=== PATIENT | female | born 1965 | race Two or more races ===

== ENCOUNTER 2017-02-01 19:31 | Emergency (ER) | payer MEDICARE, OTHER ==
[~2017-02-01] VITALS: Ht 172.7 cm; Wt 129.7 kg
[2017-02-01 19:39] VITALS: BP 141/64
[2017-02-01] MEDS ORDERED: ONDANSETRON 4 MG TAB.RAPDIS SL ONE (20:00)
[2017-02-01] MEDS ORDERED: HYDROCODONE/APAP 10/325MG 1 EA TABLET PO ONE (20:00)
[2017-02-01] MEDS ORDERED: ONDANSETRON 4 MG TAB.RAPDIS ONE (20:05)
[2017-02-01] MEDS ORDERED: HYDROCODONE/APAP 10/325MG 1 EA TABLET ONE (20:06)
== END 2017-02-01 21:27 | disposition home or self-care (01) ==
LOC: ER 19:31
DX: M79.661 Pain in right lower leg (principal); E11.9 Type 2 diabetes mellitus without complications; Z85.3 Personal history of malignant neoplasm of breast; Z90.13 Acquired absence of bilateral breasts and nipples; Z90.89 Acquired absence of other organs; Z90.49 Acquired absence of other specified parts of digestive tract
CPT/HCPCS: 73590; 93970; 99284; A4606; Q0162; Z7610

== ENCOUNTER 2017-04-05 20:14 | Emergency (ER) | payer MEDICARE, OTHER ==
[~2017-04-05] VITALS: Ht 170.2 cm; Wt 131.5 kg
--- NOTE | 2017-04-05 20:21 | NUR ---
PT BIB BY SON. "PAIN LT BREAST WHERE THE MASTECTOMY WAS DONE SINCE YESTERDAY". PLACED ON MONITOR. GOWNED PT. VSS. AWAITING MD ORDER
--- NOTE | 2017-04-05 20:38 | NUR ---
DR KHAN AT BEDSIDE FOR EVAL
--- NOTE | 2017-04-05 20:45 | NUR ---
EKG IN PROGRESS
--- NOTE | 2017-04-05 20:48 | NUR ---
MACHINE SETTER AUTOMATIC AT BEDSIDE
--- NOTE | 2017-04-05 20:48 | NUR ---
RFA #20 IV ACCESS. BLOOD SAMPLE COLLECTED SENT TO LAB
[2017-04-05] MEDS ORDERED: IOHEXOL-350 100 ML VIAL IV ONE (20:53)
[2017-04-05] MEDS ORDERED: IV NS 0.9% 250 ML IV ONE (20:53)
[2017-04-05 20:54] LABS: BASOPHILS # (AUTO) 0.1 /CMM (0.0-0.2); BASOPHILS % (AUTO) 0.7 % (0.0-2.0); EOSINOPHILS # (AUTO) 0.2 /CMM (0.0-0.7); EOSINOPHILS % (AUTO) 2.1 % (0.0-6.0); HEMATOCRIT 45 % (33-45); HEMOGLOBIN 14.4 g/dL (11.5-14.8); LYMPHOCYTES # (AUTO) 2.4 /CMM (0.8-4.8); MEAN CORPUSCULAR HEMOGLOBIN 28 PG (26.0-33.0); MEAN CORPUSCULAR HGB CONC 33 g/dl (31.0-36.0); MEAN CORPUSCULAR VOLUME 86 fL (82-100); MONOCYTES # (AUTO) 0.4 /CMM (0.1-1.30); NEUTROPHILS # (AUTO) 4.3 /CMM (1.8-8.9); NEUTROPHILS % (AUTO) 59.2 % (43.0-81.0); PLATELET COUNT (AUTO) 186 /CMM (150-450); RDW COEFFICIENT OF VARIATION 12.4 (11.5-15.0); RED BLOOD CELL COUNT(AUTO) 5.21 MIL/uL (4.0-5.2); WHITE BLOOD COUNT (AUTO) 7.4 K/uL (4.3-11.0)
[2017-04-05 20:59] LABS: CALCIUM, SERUM 9.5 mg/dL (8.5-10.1); CARBON DIOXIDE 26 mmol/L (21-32); CHLORIDE 105 mmol/L (98-107); CREATININE 0.9 mg/dL (0.6-1.3); GLUCOSE 138 mg/dL (74-106); SODIUM SERUM 139 mmol/L (136-145); UREA NITROGEN, BLOOD 19 mg/dL (7-18)
--- NOTE | 2017-04-05 21:00 | NUR ---
PT TAKEN TO CT VIA [facility]
[2017-04-05 21:02] LABS: INR 1.05 (0.87-1.13); PROTHROMBIN TIME 10.9 SECS (9.5-12.7)
[2017-04-05 21:08] LABS: TROPONIN I < 0.017 ng/mL (0.00-0.056)
--- NOTE | 2017-04-05 21:48 | NUR ---
IV removed. Catheter intact and site benign. Pressure and 4x4 applied to site. No bleeding noted.
--- NOTE | 2017-04-05 21:48 | NUR ---
Patient discharged to home in stable condition. Written and verbal after care instructions given. Patient verbalizes understanding of instruction.
[2017-04-05 22:00] VITALS: BP 125/85
[2017-04-05] MEDS ORDERED: HYDROCODONE/APAP 10/325MG 1 EA TABLET PO ONE (22:00)
[2017-04-05] MEDS ORDERED: ONDANSETRON 4 MG TAB.RAPDIS SL ONE (22:00)
== END 2017-04-05 22:01 | disposition home or self-care (01) ==
LOC: ER 20:16
DX: R07.89 Other chest pain (principal); E11.9 Type 2 diabetes mellitus without complications; Z90.89 Acquired absence of other organs; Z85.3 Personal history of malignant neoplasm of breast; Z90.49 Acquired absence of other specified parts of digestive tract; Z90.12 Acquired absence of left breast and nipple
CPT/HCPCS: 36415; 71010-TC; 80048-TC; 84484-TC; 85025-TC; 85730-TC; A4606; J7050; Q9967; Z7610

== ENCOUNTER 2022-01-01 21:24 | Emergency (ER) | payer MEDICARE, OTHER ==
[~2022-01-01] VITALS: Ht 167.6 cm; Wt 75.3 kg
--- NOTE | 2022-01-01 23:20 | NUR ---
URINE COLLECTED, SENT TO LAB Addendum: 01/02/22 at 0251 by OMER CORRECT TIME [id number]
--- NOTE | 2022-01-01 23:48 | NUR ---
IV LINE ESTABLISHED. RAC 22G
--- NOTE | 2022-01-01 23:50 | NUR ---
Patient was brought in by daughter with complaints of abdominal pain. Patient is AAO x 4, Ukrainian speaking but understands Kazakh. Respirations unlabored. She states that it radiates to her bilateral upper shoulders. She also complains of nausea and vomiting as well as diarrhea. Patient has a prior history of a ulcer which she states started having some bleeding about 2 years ago. She stated that she had very similar symptoms as she does today prior to the bleeding beginning. Patient was attached to monitor and pulse ox. Will continue to monitor
[2022-01-02] MEDS ORDERED: IV NS 0.9% 1,000 ML BAG IV ONE
[2022-01-02] MEDS ORDERED: MORPHINE SULFATE INJ 2 MG/ML DISP.SYRIN IV ONE
[2022-01-02] MEDS ORDERED: ONDANSETRON HCL/PF 4 MG/2 ML VIAL IVP ONE
[2022-01-02] MEDS ORDERED: ONDANSETRON HCL/PF 4 MG/2 ML VIAL ONE (00:04)
[2022-01-02] MEDS ORDERED: MORPHINE SULFATE INJ 4 MG/ML DISP.SYRIN ONE (00:05)
[2022-01-02 00:17] LABS: BASOPHILS % (AUTO) 0.5 % (0.0-2.0); EOSINOPHILS % (AUTO) 0.3 % (0.0-6.0); HEMATOCRIT 41 % (33-45); HEMOGLOBIN 13.2 g/dL (11.5-14.8); LYMPHOCYTES # (AUTO) 0.3 K/uL (0.8-4.8); LYMPHOCYTES % (AUTO) 4.5 % (20.0-44.0); MEAN CORPUSCULAR HGB CONC 33 g/dl (31.0-36.0); MEAN CORPUSCULAR VOLUME 80 fL (82-100); MONOCYTES # (AUTO) 0.3 K/uL (0.1-1.30); MONOCYTES % (AUTO) 4.5 % (2.0-12.0); NEUTROPHILS # (AUTO) 6.3 K/uL (1.8-8.9); NEUTROPHILS % (AUTO) 90.2 % (43.0-81.0); PLATELET COUNT (AUTO) 162 K/uL (150-450); RED BLOOD CELL COUNT(AUTO) 5.06 MIL/uL (4.0-5.2)
[2022-01-02 00:40] LABS: ALANINE AMINOTRANSFERASE 42 U/L (12-78); ALBUMIN 3.2 g/dL (3.4-5.0); ALKALINE PHOSPHATASE 86 U/L (46-116); ASPARTATE AMINOTRANSFERASE 36 U/L (15-37); BILIRUBIN,DIRECT 0.1 mg/dL (0.0-0.2); BILIRUBIN,TOTAL 0.6 mg/dL (0.2-1.0); CALCIUM, SERUM 7.7 mg/dL (8.5-10.1); CARBON DIOXIDE 24 mmol/L (21-32); CHLORIDE 106 mmol/L (98-107); CREATININE 1.2 mg/dL (0.6-1.3); GLUCOSE 217 mg/dL (74-106); LIPASE 28 U/L (73-393); POTASSIUM 4.2 mmol/L (3.5-5.1); SODIUM SERUM 137 mmol/L (136-145); TOTAL PROTEIN, SERUM 6.6 g/dL (6.4-8.2); UREA NITROGEN, BLOOD 22 mg/dL (7-18)
[2022-01-02 02:04] LABS: BILIRUBIN,URINE NEGATIVE (NEGATIVE); COLOR,URINE YELLOW (YELLOW); LEUKOCYTE ESTERASE ,URINE TRACE (NEGATIVE); NITRITE, URINE POSITIVE (NEGATIVE); PROTEIN,URINE NEGATIVE (NEGATIVE); UGLUCOSE NEGATIVE (NEGATIVE); UROBILINOGEN,URINE 0.2 EU/dL (0.2)
[2022-01-02] MEDS ORDERED: NITR100C6 PO (03:27)
[2022-01-02] MEDS ORDERED: NITROFURANTOIN/MONOHYDRATE MACROCRYSTALS 100 MG CAPSULE ONE (03:30)
[2022-01-02] MEDS ORDERED: NITROFURANTOIN/MONOHYDRATE MACROCRYSTALS 100 MG CAPSULE PO ONE (03:30)
--- NOTE | 2022-01-02 03:37 | NUR ---
Patient discharged to home in stable condition. Written and verbal after care instructions given. Patient verbalizes understanding of instruction. IV line discontinued and 2x2 gauze applied to site without incident.
[2022-01-02 04:30] VITALS: BP 128/69
[2022-01-02 06:31] LABS: BACTERIA,URINE 2+ /HPF (None Seen); RBC,URINE 21-50 /HPF (0-2); SQUAMOUS EPITHELIAL CELL,UR Few /HPF (None Seen)
== END 2022-01-02 04:30 | disposition home or self-care (01) ==
LOC: ER 21:32
DX: N39.0 Urinary tract infection, site not specified (principal); K40.90 Unilateral inguinal hernia, without obstruction or gangrene, not specified as recurrent; R10.13 Epigastric pain; E11.9 Type 2 diabetes mellitus without complications; Z85.3 Personal history of malignant neoplasm of breast; Z87.828 Personal history of other (healed) physical injury and trauma; Z90.12 Acquired absence of left breast and nipple; Z90.89 Acquired absence of other organs; Z79.899 Other long term (current) drug therapy
CPT/HCPCS: 36415; 71045; 74176; 80048; 80076; 81001; 83690; 84484; 85025; 85730; 87077; 87086; 87186; 93005; 96361; 96374; 96375; 99285; J2270; J2405; J7030

== ENCOUNTER 2025-03-15 23:26 | Emergency (ER) | payer MEDICARE, OTHER ==
[~2025-03-15] VITALS: Ht 167.6 cm; Wt 85.7 kg
[~2025-03-15 23:26] MED LIST: NITR100C6 PO
[2025-03-16] MEDS ORDERED: CEPH-570 PO (01:13)
[2025-03-16] MEDS ORDERED: SULF1TAB48 PO (01:13)
[2025-03-16 01:37] VITALS: BP 106/60; TEMP 98; O2SAT 98
== END 2025-03-16 01:38 | disposition home or self-care (01) ==
LOC: ER 23:29
DX: L03.114 Cellulitis of left upper limb (principal); E11.9 Type 2 diabetes mellitus without complications; Z85.3 Personal history of malignant neoplasm of breast

== ENCOUNTER 2025-06-14 03:30 | Emergency (ER) | payer MEDICARE, OTHER ==
[~2025-06-14] VITALS: Ht 167.6 cm; Wt 89.4 kg
[~2025-06-14 03:30] MED LIST changes: +CEPH-570 PO; +SULF1TAB48 PO
[2025-06-14] MEDS ORDERED: ACETAMINOPHEN 325 MG TABLET ONE (04:29)
[2025-06-14] MEDS: IV NS 0.9% 1,000 ML BAG IV ONE (04:44)
[2025-06-14] MEDS: ACETAMINOPHEN 325 MG TABLET PO ONE (04:45)
[2025-06-14 04:48] LABS: PLATELET COUNT (AUTO) 202 K/uL (150-450); RED BLOOD CELL COUNT(AUTO) 5.00 MIL/uL (4.0-5.2); RED CELL DISTRIBUTION WIDTH 15.4 % (11.5-15.0); WHITE BLOOD COUNT (AUTO) 12.6 K/uL (4.3-11.0)
[2025-06-14 04:55] LABS: CALCIUM, SERUM 8.7 mg/dL (8.5-10.1); CREATININE 1.1 mg/dL (0.6-1.3); SODIUM SERUM 140 mmol/L (136-145); UREA NITROGEN, BLOOD 15 mg/dL (7-18)
[2025-06-14 05:01] LABS: ASPARTATE AMINOTRANSFERASE 28 U/L (15-37); INR 1.07 (0.91-1.10); TOTAL PROTEIN, SERUM 7.4 g/dL (6.4-8.2)
[2025-06-14 05:02] LABS: APPEARANCE,URINE SLIGHTLY CLOUDY (CLEAR); BLOOD, URINE TRACE-INTA Ery/uL (NEGATIVE); LEUKOCYTE ESTERASE ,URINE 3+ (NEGATIVE); NITRITE, URINE NEGATIVE (NEGATIVE); UGLUCOSE NEGATIVE (NEGATIVE)
[2025-06-14 05:03] LABS: LACTIC ACID 1.0 mmol/L (0.4-2.0)
[2025-06-14 05:05] LABS: ADD URINE CULTURE YES; SQUAMOUS EPITHELIAL CELL,UR Moderate /HPF (None Seen)
[2025-06-14] MEDS ORDERED: CEFTRIAXONE 1GM BAG (ER ONLY) 50 ML IV ONE (06:34)
[2025-06-14] MEDS: CEFTRIAXONE 1GM BAG (ER ONLY) 1 GM/50 ML PIGGYBACK IV ONE (06:37)
[2025-06-14] MEDS ORDERED: IBUP-1490 PO (06:48)
[2025-06-14] MEDS ORDERED: PHEN-705 PO (06:48)
[2025-06-14] MEDS ORDERED: CEFP200T14 PO (06:48)
[2025-06-14 07:10] VITALS: BP 107/62; TEMP 98.6; O2SAT 97
== END 2025-06-14 07:14 | disposition home or self-care (01) ==
LOC: ER 03:35
DX: N39.0 Urinary tract infection, site not specified (principal); E11.9 Type 2 diabetes mellitus without complications; B97.89 Other viral agents as the cause of diseases classified elsewhere; R00.0 Tachycardia, unspecified; Z85.3 Personal history of malignant neoplasm of breast; Z86.2 Personal history of diseases of the blood and blood-forming organs and certain disorders involving the immune mechanism; Z79.899 Other long term (current) drug therapy
CPT/HCPCS: 99285; 96365; 71045; 96361; 93005; 85025; 80048; 87040 ×2; 87086; 83605; 80076; 87186; 81001; 36415; 84484; 85730; J7030; J0696